=== PATIENT | male | born 1950 | race Caucasian/White ===

== ENCOUNTER 2017-04-23 09:28 | Emergency (ER) | payer MEDICARE ==
--- NOTE | 2017-04-23 10:31 | DIAGNOSTIC IMAGING REPORT ---
PROCEDURE: CT HEAD WITHOUT CONTRAST INDICATION: WEAKNESS TECHNIQUE: Axial CT images were acquired through the head. Coronal and sagittal reformations were created. COMPARISON: None. FINDINGS: No intracranial hemorrhage or extraaxial fluid collections. Ventricles are normal in size, shape and position. There is no mass, mass effect or midline shift. The de jesus-white matter differentiation is normal. There is no edema. The calvarium is intact. The paranasal sinuses and mastoid air cells are normally aerated. The extracranial soft tissues and orbits are normal. IMPRESSION: 1. No CT evidence of acute intracranial process. 2. Findings discussed with Sukumar at 10:[address] scans at this facility use dose modulation, iterative reconstruction, and/or weight-based dosing when appropriate to reduce radiation dose to as low as reasonably achievable.
--- NOTE | 2017-04-23 12:12 | DIAGNOSTIC IMAGING REPORT ---
PROCEDURE: MR LUMBAR SPINE W/O CONTRAST INDICATION: BACK PAIN TECHNIQUE: Noncontrast T1, T2, and STIR sagittal images. T1 and T2 axial images. COMPARISON: Lumbar spine MRI dated 08/17/2006 FINDINGS: Conus normal L1-2: Normal. L2-3: Normal. L3-4: Small broad-based central disc protrusion/herniation superimposed mildly bulging disc and mild narrowing of the central canal lateral recesses. L4-5: Small broad-based right central disc herniation superimposed on mild bulging disc and mild facet disease results in mild to moderate narrowing of the central canal lateral recesses, right greater than left. L5-S1: Mild bulge and facet disease. IMPRESSION: 1. Small broad-based central disc protrusion - herniation at L3-4 with mild central and lateral recess stenosis. 2. Small broad-based right central disc herniation at L4-5 with mild to moderate narrowing of the central canal and lateral recesses, right greater than left.
--- NOTE | 2017-04-23 17:17 | ED CLINICAL REPORT ---
Clinical Report - Physicians/Mid Levels [facility] [address] [place] [address] 04/23/2017 9:36 Patient: BRYSON WORLEY V Time Seen: 09:41. Arrived- By private vehicle. Historian- patient and family, using an seamless hosiery knitter (Tristanian speaking). HISTORY OF PRESENT ILLNESS Chief Complaint: WEAKNESS. This started several months ago, but exacerbated in the past 72 hours and is still present. It was gradual in onset and has been waxing/waning. At its maximum, severity described as moderate. When seen in the E.D., severity described as moderate. Modifying factors- worsened by movement. Relieved by rest. The patient has had weight loss, fatigue, muscle aches, decreased urine output and weakness of the right leg and left leg. No headache. Similar symptoms previously: Recent medical care: The patient was seen recently in a clinic. REVIEW OF SYSTEMS No fever, sore throat, sinus drainage, nasal congestion or cough. No difficulty breathing, chest pain, abdominal pain, nausea or vomiting. No diarrhea, black stools, bloody stools, chills or headache. The patient has had difficulty with urination (states he has not been drinking fluids in the past several days because he cannot walk to the bathroom). He has had moderate back pain (not acutely changed). It has been similar to previous symptoms. He has had difficulty with ambulation (right > left). It has been associated with weakness in both legs. All systems otherwise negative, except as recorded above. PAST HISTORY Chronic Back Pain GERD Hyperlipidemia Chronic Right Elbow and forearm pain Cataracts bilateral SURGERIES: Appendectomy. SOCIAL HISTORY Never smoker. No alcohol use or drug use. ADDITIONAL NOTES The nursing notes have been reviewed. PHYSICAL EXAM Vital Signs: 04/23/2017 09:39 BP: 127/73. HR: 86. RR: 20. O2 saturation: 96%. Temp: 98.8 F. Ashton-Galarza pain scale: 6/10. Appearance: Alert. Patient in mild distress. Eyes: Eyes normal inspection. No scleral icterus or pale conjunctivae. ENT: Nose normal. Dry mucous membranes present. No pharyngeal erythema or tonsillar exudate. Neck: Normal inspection. Neck supple. No JVD. CVS: Normal heart rate and rhythm. Heart sounds normal. Pulses normal. Respiratory: No respiratory distress. Breath sounds normal. Abdomen: No visible injury. Soft and nontender. No mass. Back: Normal inspection. Mild soft-tissue tenderness in the right lower and left lower lumbar area. No vertebral point tenderness. Skin: Skin warm and dry. Normal skin color. No rash. Normal skin turgor. Extremities: Extremities exhibit normal ROM. No lower extremity edema. No calf tenderness. Neuro: Oriented X 3. He has had weakness of the right leg (moderate), right foot (moderate), left leg (moderate) and left foot (moderate). No sensory deficit. Reflex exam: right patellar, left patellar 1+, right Achilles 0 and left Achilles 1+. No Babinski reflex. LABS, X-RAYS, AND EKG EKG: EKG time: (9:58). Normal sinus rhythm. Rate: 80. Normal P waves. Normal MICHELLE. Normal QRS complex. Normal axis. Normal ST and T waves. The study has been interpreted contemporaneously by me. The EKG appears to be a good tracing. Rhythm Strip #1: Normal sinus rhythm. Regular rhythm. Narrow QRS complexes. No ectopy. CT Head: Normal study. No acute changes. No bony abnormalities, no hemorrhage, no intracranial mass, no midline shift and no hydrocephalus. No atrophy. Head CT performed without contrast. The study was independently viewed by me, interpreted by the radiologist and discussed with the radiologist. MRI L-Spine: Note- IMPRESSION: 1. Small broad-based central disc protrusion - herniation at L3-4 with mild central and lateral recess stenosis. 2. Small broad-based right central disc herniation at L4-5 with mild to moderate narrowing of the central canal and lateral recesses, right greater than left. Laboratory Tests: UA-Culture if indicated: (JOHN: 04/23/2017 10:20) ( MsgRcvd 04/23/2017 10:39) Final results Test Result Flag Units (Reference) URINE COLOR YELLOW URINE APPEARANCE TURBID URINE GLUCOSE NEGATIVE (NEGATIVE) URINE BILIRUBIN NEGATIVE (NEGATIVE) URINE KETONE TRACE (NEGATIVE) URINE SPECIFIC GRAVITY 1.015 (1.010-1.030) URINE PH 7.0 (5.0-8.0) URINE PROTEIN NEGATIVE (NEGATIVE) URINE UROBILINOGEN 1.0 EU/dL (0.2-1.0) URINE NITRITE POSITIVE (NEGATIVE) URINE BLOOD TRACE-INTACT (NEGATIVE) URINE LEUK ESTERASE TRACE (NEGATIVE) URINE RBC 0-1 rbc/hpf (0-1) URINE WBC 1-3 wbc/hpf (0-1) URINE EPITHELIAL CELLS NONE SEEN EPI/hpf (0-5) URINE BACTERIA MODERATE (2+ TO 3+) (NONE SEEN) URINE COMMENT CULTURE INDICATED URINE CULTURES ARE SET-UP BASED ON THE FOLLOWING CRITERIA:POSITIVE NITRITEPOSITIVE LEUKOCYTE ESTERASEGREATER THAN 10 WHITE BLOOD CELLSMODERATE (2+) OR GREATER BACTERIA CBC w Diff: (JOHN: 04/23/2017 09:42) ( [facility] 04/23/2017 09:55) Final results Test Result Flag Units (Reference) WHITE BLOOD COUNT 5.5 K/uL (4.5-11.5) RED BLOOD COUNT 4.34 L M/uL (4.50-5.90) HEMOGLOBIN 13.3 L gm/dL (13.5-17.5) HEMATOCRIT 39.3 L % (41.0-53.0) MEAN CELL VOLUME 91 fL (80-100) MEAN CORPUSCULAR HGB 31 pg (26-34) MEAN CORPUSCULAR HGB CONC 34 g/dL (31-37) RED CELL DISTRIBUTION WIDTH 12.9 % (11.6-14.8) PLATELET COUNT 220 K/uL (150-400) NEUTROPHIL % 71.5 % (50-75) LYMPH % 20.5 L % (25-40) MONO % 7.5 % (3-14) EOSINOPHIL % 0.1 % (0-4) BASOPHIL % 0.4 % (0-2) Urine Drug Screen: (JOHN: 04/23/2017 10:20) ( [facility] 04/23/2017 10:47) Final results Test Result Flag Units (Reference) AMPHETAMINE/METHAMPHETAMINE NEGATIVE (NEGATIVE) BARBITURATE NEGATIVE (NEGATIVE) BENZODIAZEPINE NEGATIVE (NEGATIVE) CANNABINOID NEGATIVE (NEGATIVE) COCAINE NEGATIVE (NEGATIVE) ECSTASY NEGATIVE (NEGATIVE) METHADONE NEGATIVE (NEGATIVE) OPIATE NEGATIVE (NEGATIVE) The urine drug screen is a qualitative screening test fordrug overdose and abuse. All screen results should beconsidered as presumptive.Drugs screened for are as follows:BenzodiazepinesCocaineAmphetamines/MetamphetaminesTHC (Tetrahydrocannabinol)OpiatesBarbituratesEcstasyMethadonePositive results are unconfirmed. For confirmation, notifythe lab for the specimen to be sent to the reference lab.All confirmations must be performed by a differentmethodology.The ingestion of natural herbal and plant productscontaining Ephedra/Ephedra metabolites can produce in urineone or more substances capable of cross reacting withamphetamine/methamphetamine immunoassays. These testsprovide a preliminary result only. A more specificalternative chemical method must be used to obtain aconfirmed analytical result. BNP: (JOHN: 04/23/2017 09:42) ( [facility] 04/23/2017 10:11) Final results Test Result Flag Units (Reference) B-TYPE NATRIURETIC PEPTIDE 14.6 pg/ml (5-100) CHEM 13 PANEL: (JOHN: 04/23/2017 09:42) ( [facility] 04/23/2017 10:15) Final results Test Result Flag Units (Reference) GLUCOSE 125 H mg/dL (70-110) BUN 21 H mg/dL (7-18) CREATININE 0.9 mg/dL (0.6-1.3) Estimated GFR >60 mL/min Estimated GFR- >60 mL/min Note: Persistent reduction over 3 months in eGFR<60 mL/min/1.73 m2 defines CKD. Patients with eGFR values>=60 mL/min/1.73 m2 may also have CKD if evidence ofpersistent proteinuria. Additional information may be foundat www.kidney.org. SODIUM 145 mmol/L (136-145) POTASSIUM 3.6 mmol/L (3.5-5.1) CHLORIDE 108 H mmol/L (98-107) CARBON DIOXIDE 29 mmol/L (21-32) CALCIUM 9.4 mg/dL (8.5-10.1) TOTAL PROTEIN 7.3 g/dL (6.4-8.2) ALBUMIN 4.1 g/dL (3.3-5.0) BILIRUBIN, TOTAL 0.7 mg/dL (0.0-1.0) ALKALINE PHOSPHATASE 38 L U/L (46-116) AST (SGOT) 9 L U/L (15-37) ALT (SGPT) 13 U/L (12-78) CPK 57 U/L (24-260) MAGNESIUM 2.1 mg/dL (1.8-2.4) LIPASE 183 U/L (73-393) AMYLASE 52 U/L (25-115) TROPONIN I <0.05 ng/mL (0.00-1.5) TROPONIN REFERENCE RANGE:<0.1 NEGATIVE0.1-1.5 INDETERMINANT>1.5 POSITIVE THYROID STIMULATING HORMONE 0.928 uIU/mL (0.30-3.74) . Microbiology: Urine culture ordered. Pulse Oximetry: 04/23/2017 09:39 O2 saturation: 96%. (FIO2 - room air). Interpretation: normal. Note - Tests: (DATE OF EXAM(S): 03/01/2015 PROCEDURE: MR BRAIN W OR WO IACS WO CONTRAST INDICATIONS: Chronic headache. TECHNIQUE: T1 sagittal and T2 coronal images. T1, T2, FLAIR, gradient echo and diffusion axial images with ADC map. COMPARISON: None FINDINGS: Mild cortical atrophy. Ventricular system and brain parenchyma have a normal appearance. No evidence of an acute CVA, chronic ischemic changes, mass or midline shift. Normal vascular flow voids. Orbits are unremarkable. Mastoids and sinuses are clear. IMPRESSION: 1. No acute changes 2. Mild age appropriate atrophy). PROGRESS AND PROCEDURES Course of Care: Normal Saline 1 liter IVPB given. Levofloxacin 500 mg PO given. Protonix 40 mg IVP given. Solu-Medrol [address] head unremarkable. Lumbar MRI with central cord herniation L4/5 greater than L3/4 and also hypertrophic facets. This may be causing a subacute cauda equina syndrome and pt is too weak to ambulate. He is dehydrated clinically likely because he is not taking po's because he cannot ambulate to the bathroom - bladder empty. May have a subtle UTI - 3+ bacteria (vs contamination) and +nitrite, however not incontinence or urine or stool and no saddle area anesthesia. Discussed case with health care provider ( transfer center paged at 13:50 call returned 14:17 (spoke with transfer RN); call returned 15:02 - Dr Eckert (spine [place] at [facility] [place] - he declines to accept pt in transfer). Reviewed test results. Agreed upon treatment plan. Discussed case with on-call health care provider, ([facility] neurosurg call placed 15:09; Dr Mo Burns call returned 17:15). Reviewed test results. Agreed upon treatment plan and decision to admit. Health care provider will see patient in hospital. Patient/family counseled. Old clinic records reviewed. (from [facility]). Transfer orders written. Disposition: Transferred to [facility]. Condition: stable and improved. CLINICAL IMPRESSION Mild dehydration Mild chronic anemia. Acute urinary tract infection with cystitis. Acute bilateral lower extremity weakness - rule out cauda equina syndrome. INSTRUCTIONS Drink plenty of fluids. (Electronically signed by Cole Patino DO 04/23/2017 21:25)
--- NOTE | 2017-04-23 17:17 | ED CLINICAL REPORT ---
Clinical Report - Physicians/Mid Levels [facility] [address] [place] [address] 04/23/2017 9:36 Patient: BRYSON WORLEY V Time Seen: 09:41. Arrived- By private vehicle. Historian- patient and family, using an senior oracle developer (Hong Konger speaking). HISTORY OF PRESENT ILLNESS Chief Complaint: WEAKNESS. This started several months ago, but exacerbated in the past 72 hours and is still present. It was gradual in onset and has been waxing/waning. At its maximum, severity described as moderate. When seen in the E.D., severity described as moderate. Modifying factors- worsened by movement. Relieved by rest. The patient has had weight loss, fatigue, muscle aches, decreased urine output and weakness of the right leg and left leg. No headache. Similar symptoms previously: Recent medical care: The patient was seen recently in a clinic. REVIEW OF SYSTEMS No fever, sore throat, sinus drainage, nasal congestion or cough. No difficulty breathing, chest pain, abdominal pain, nausea or vomiting. No diarrhea, black stools, bloody stools, chills or headache. The patient has had difficulty with urination (states he has not been drinking fluids in the past several days because he cannot walk to the bathroom). He has had moderate back pain (not acutely changed). It has been similar to previous symptoms. He has had difficulty with ambulation (right > left). It has been associated with weakness in both legs. All systems otherwise negative, except as recorded above. PAST HISTORY Chronic Back Pain GERD Hyperlipidemia Chronic Right Elbow and forearm pain Cataracts bilateral SURGERIES: Appendectomy. SOCIAL HISTORY Never smoker. No alcohol use or drug use. ADDITIONAL NOTES The nursing notes have been reviewed. PHYSICAL EXAM Vital Signs: 04/23/2017 09:39 BP: 127/73. HR: 86. RR: 20. O2 saturation: 96%. Temp: 98.8 F. Ashton-Galarza pain scale: 6/10. Appearance: Alert. Patient in mild distress. Eyes: Eyes normal inspection. No scleral icterus or pale conjunctivae. ENT: Nose normal. Dry mucous membranes present. No pharyngeal erythema or tonsillar exudate. Neck: Normal inspection. Neck supple. No JVD. CVS: Normal heart rate and rhythm. Heart sounds normal. Pulses normal. Respiratory: No respiratory distress. Breath sounds normal. Abdomen: No visible injury. Soft and nontender. No mass. Back: Normal inspection. Mild soft-tissue tenderness in the right lower and left lower lumbar area. No vertebral point tenderness. Skin: Skin warm and dry. Normal skin color. No rash. Normal skin turgor. Extremities: Extremities exhibit normal ROM. No lower extremity edema. No calf tenderness. Neuro: Oriented X 3. He has had weakness of the right leg (moderate), right foot (moderate), left leg (moderate) and left foot (moderate). No sensory deficit. Reflex exam: right patellar, left patellar 1+, right Achilles 0 and left Achilles 1+. No Babinski reflex. LABS, X-RAYS, AND EKG EKG: EKG time: (9:58). Normal sinus rhythm. Rate: 80. Normal P waves. Normal MICHELLE. Normal QRS complex. Normal axis. Normal ST and T waves. The study has been interpreted contemporaneously by me. The EKG appears to be a good tracing. Rhythm Strip #1: Normal sinus rhythm. Regular rhythm. Narrow QRS complexes. No ectopy. CT Head: Normal study. No acute changes. No bony abnormalities, no hemorrhage, no intracranial mass, no midline shift and no hydrocephalus. No atrophy. Head CT performed without contrast. The study was independently viewed by me, interpreted by the radiologist and discussed with the radiologist. MRI L-Spine: Note- IMPRESSION: 1. Small broad-based central disc protrusion - herniation at L3-4 with mild central and lateral recess stenosis. 2. Small broad-based right central disc herniation at L4-5 with mild to moderate narrowing of the central canal and lateral recesses, right greater than left. Laboratory Tests: UA-Culture if indicated: (JOHN: 04/23/2017 10:20) ( MsgRcvd 04/23/2017 10:39) Final results Test Result Flag Units (Reference) URINE COLOR YELLOW URINE APPEARANCE TURBID URINE GLUCOSE NEGATIVE (NEGATIVE) URINE BILIRUBIN NEGATIVE (NEGATIVE) URINE KETONE TRACE (NEGATIVE) URINE SPECIFIC GRAVITY 1.015 (1.010-1.030) URINE PH 7.0 (5.0-8.0) URINE PROTEIN NEGATIVE (NEGATIVE) URINE UROBILINOGEN 1.0 EU/dL (0.2-1.0) URINE NITRITE POSITIVE (NEGATIVE) URINE BLOOD TRACE-INTACT (NEGATIVE) URINE LEUK ESTERASE TRACE (NEGATIVE) URINE RBC 0-1 rbc/hpf (0-1) URINE WBC 1-3 wbc/hpf (0-1) URINE EPITHELIAL CELLS NONE SEEN EPI/hpf (0-5) URINE BACTERIA MODERATE (2+ TO 3+) (NONE SEEN) URINE COMMENT CULTURE INDICATED URINE CULTURES ARE SET-UP BASED ON THE FOLLOWING CRITERIA:POSITIVE NITRITEPOSITIVE LEUKOCYTE ESTERASEGREATER THAN 10 WHITE BLOOD CELLSMODERATE (2+) OR GREATER BACTERIA CBC w Diff: (JOHN: 04/23/2017 09:42) ( [facility] 04/23/2017 09:55) Final results Test Result Flag Units (Reference) WHITE BLOOD COUNT 5.5 K/uL (4.5-11.5) RED BLOOD COUNT 4.34 L M/uL (4.50-5.90) HEMOGLOBIN 13.3 L gm/dL (13.5-17.5) HEMATOCRIT 39.3 L % (41.0-53.0) MEAN CELL VOLUME 91 fL (80-100) MEAN CORPUSCULAR HGB 31 pg (26-34) MEAN CORPUSCULAR HGB CONC 34 g/dL (31-37) RED CELL DISTRIBUTION WIDTH 12.9 % (11.6-14.8) PLATELET COUNT 220 K/uL (150-400) NEUTROPHIL % 71.5 % (50-75) LYMPH % 20.5 L % (25-40) MONO % 7.5 % (3-14) EOSINOPHIL % 0.1 % (0-4) BASOPHIL % 0.4 % (0-2) Urine Drug Screen: (JONH: 04/23/2017 10:20) ( [facility] 04/23/2017 10:47) Final results Test Result Flag Units (Reference) AMPHETAMINE/METHAMPHETAMINE NEGATIVE (NEGATIVE) BARBITURATE NEGATIVE (NEGATIVE) BENZODIAZEPINE NEGATIVE (NEGATIVE) CANNABINOID NEGATIVE (NEGATIVE) COCAINE NEGATIVE (NEGATIVE) ECSTASY NEGATIVE (NEGATIVE) METHADONE NEGATIVE (NEGATIVE) OPIATE NEGATIVE (NEGATIVE) The urine drug screen is a qualitative screening test fordrug overdose and abuse. All screen results should beconsidered as presumptive.Drugs screened for are as follows:BenzodiazepinesCocaineAmphetamines/MetamphetaminesTHC (Tetrahydrocannabinol)OpiatesBarbituratesEcstasyMethadonePositive results are unconfirmed. For confirmation, notifythe lab for the specimen to be sent to the reference lab.All confirmations must be performed by a differentmethodology.The ingestion of natural herbal and plant productscontaining Ephedra/Ephedra metabolites can produce in urineone or more substances capable of cross reacting withamphetamine/methamphetamine immunoassays. These testsprovide a preliminary result only. A more specificalternative chemical method must be used to obtain aconfirmed analytical result. BNP: (JOHN: 04/23/2017 09:42) ( [facility] 04/23/2017 10:11) Final results Test Result Flag Units (Reference) B-TYPE NATRIURETIC PEPTIDE 14.6 pg/ml (5-100) CHEM 13 PANEL: (JOHN: 04/23/2017 09:42) ( [facility] 04/23/2017 10:15) Final results Test Result Flag Units (Reference) GLUCOSE 125 H mg/dL (70-110) BUN 21 H mg/dL (7-18) CREATININE 0.9 mg/dL (0.6-1.3) Estimated GFR >60 mL/min Estimated GFR- >60 mL/min Note: Persistent reduction over 3 months in eGFR<60 mL/min/1.73 m2 defines CKD. Patients with eGFR values>=60 mL/min/1.73 m2 may also have CKD if evidence ofpersistent proteinuria. Additional information may be foundat www.kidney.org. SODIUM 145 mmol/L (136-145) POTASSIUM 3.6 mmol/L (3.5-5.1) CHLORIDE 108 H mmol/L (98-107) CARBON DIOXIDE 29 mmol/L (21-32) CALCIUM 9.4 mg/dL (8.5-10.1) TOTAL PROTEIN 7.3 g/dL (6.4-8.2) ALBUMIN 4.1 g/dL (3.3-5.0) BILIRUBIN, TOTAL 0.7 mg/dL (0.0-1.0) ALKALINE PHOSPHATASE 38 L U/L (46-116) AST (SGOT) 9 L U/L (15-37) ALT (SGPT) 13 U/L (12-78) CPK 57 U/L (24-260) MAGNESIUM 2.1 mg/dL (1.8-2.4) LIPASE 183 U/L (73-393) AMYLASE 52 U/L (25-115) TROPONIN I <0.05 ng/mL (0.00-1.5) TROPONIN REFERENCE RANGE:<0.1 NEGATIVE0.1-1.5 INDETERMINANT>1.5 POSITIVE THYROID STIMULATING HORMONE 0.928 uIU/mL (0.30-3.74) . Microbiology: Urine culture ordered. Pulse Oximetry: 04/23/2017 09:39 O2 saturation: 96%. (FIO2 - room air). Interpretation: normal. Note - Tests: (DATE OF EXAM(S): 03/01/2015 PROCEDURE: MR BRAIN W OR WO IACS WO CONTRAST INDICATIONS: Chronic headache. TECHNIQUE: T1 sagittal and T2 coronal images. T1, T2, FLAIR, gradient echo and diffusion axial images with ADC map. COMPARISON: None FINDINGS: Mild cortical atrophy. Ventricular system and brain parenchyma have a normal appearance. No evidence of an acute CVA, chronic ischemic changes, mass or midline shift. Normal vascular flow voids. Orbits are unremarkable. Mastoids and sinuses are clear. IMPRESSION: 1. No acute changes 2. Mild age appropriate atrophy). PROGRESS AND PROCEDURES Course of Care: Normal Saline 1 liter IVPB given. Levofloxacin 500 mg PO given. Protonix 40 mg IVP given. Solu-Medrol [address] head unremarkable. Lumbar MRI with central cord herniation L4/5 greater than L3/4 and also hypertrophic facets. This may be causing a subacute cauda equina syndrome and pt is too weak to ambulate. He is dehydrated clinically likely because he is not taking po's because he cannot ambulate to the bathroom - bladder empty. May have a subtle UTI - 3+ bacteria (vs contamination) and +nitrite, however not incontinence or urine or stool and no saddle area anesthesia. Discussed case with health care provider ( transfer center paged at 13:50 call returned 14:17 (spoke with transfer RN); call returned 15:02 - Dr Eckert ([place] [facility] [place] - he declines to accept pt in transfer). Reviewed test results. Agreed upon treatment plan. Discussed case with on-call health care provider, ([facility] neurosurg call placed 15:09; Dr Mo Burns call returned 17:15). Reviewed test results. Agreed upon treatment plan and decision to admit. Health care provider will see patient in hospital. Patient/family counseled. Old clinic records reviewed. (from [facility]). Transfer orders written. Disposition: Transferred to [facility]. Condition: stable and improved. CLINICAL IMPRESSION Mild dehydration Mild chronic anemia. Acute urinary tract infection with cystitis. Acute bilateral lower extremity weakness - rule out cauda equina syndrome. INSTRUCTIONS Drink plenty of fluids. (Electronically signed by Cole Patino DO 04/23/2017 21:25)
--- NOTE | 2017-04-23 17:17 | ED ORDER SUMMARY ---
..... 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) (09:04/23/2017 PHutchinson DO) (10:15 JSimbeck R.N.) BNP Urgent (04/23/2017 PHutchinson DO) (Ack 9:51 KHoerner) (9:55 KHoerner) Cardiac Panel Stat (04/23/2017 PHutchinson DO) (Ack 9:51 KHoerner) (9:55 KHoerner) UA-Culture if indicated Urgent (:04/23/2017 PHutchinson DO) (Ack 9:51 KHoerner) (10:40 JSimbeck R.N.) TSH Urgent (:04/23/2017 PHutchinson DO) (Ack 9:51 KHoerner) (9:55 KHoerner) Urine Drug Screen Urgent (:04/23/2017 PHutchinson DO) (Ack 9:51 KHoerner) (10:40 JSimbeck R.N.) Pulse oximeter (:04/23/2017 PHutchinson DO) (9:53 JSimbeck R.N.) EKG - ER Stat (:04/23/2017 PHutchinson DO) (9:53 JSimbeck R.N.) POC Glucose (:04/23/2017 PHutchinson DO) (10:31 JSimbeck R.N.) Amylase Urgent (:04/23/2017 PHutchinson DO) (Ack 9:55 KHoerner) (9:55 KHoerner) Lipase Urgent (:04/23/2017 PHutchinson DO) (Ack 9:55 KHoerner) (9:55 KHoerner) CT Head wo Cont (Right > left) Urgent (09:04/23/2017 PHutchinson DO) (Ack 9:56 KHoerner) (10:23 KHoerner) Old Records (from [facility]) (10:13 04/23/2017 PHutchinson DO) (Ack 10:19 KHoerner) (10:36 KHoerner) MRI Lumbar Spine wo Cont (Not Applicable) (right > left lower ext weakness) Urgent (10:42 04/23/2017 PHutchinson DO) (Ack 10:47 KHoerner) (12:19 KHoerner) Call (Place call to): ( transfer center) (13:46 04/23/2017 PHutchinson DO) (Ack 13:49 KHoerner) (14:22 KHoerner) MEDICATION ORDERS: Levofloxacin PO 500 mg (NOW) (11:39 04/23/2017 [facility] (12:19 Levareck R.N.) IV FLUIDS: IV NS : initial bolus 1000 mL (1000 mL/hr), then 250 mL/hr for X4 (NOW) (09:44 04/23/2017 [facility]) (10:15 RAMÓNimbeck R.N.) Solu-MEDROL IV 125 mg (NOW) (15:07 04/23/2017 [facility]) (15:21 JSimbeck R.N.) Protonix IVP 40mg 40 mg (Mix in NS 10ml over 2min) (17:17 04/23/2017 [facility] [employer]) (17:33 JSimbeck R.N.) ORDER SHEET NOTES: [Electronically signed by Cole Patino DO (21:25 04/23/2017)] [Electronically signed by Suraj Flores R.N. (15:05 04/24/2017)] [Electronically locked/signed by Suraj Flores R.N. (15:04/24/2017)]
--- NOTE | 2017-04-23 17:17 | ED ORDER SUMMARY ---
..... 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) (09:04/23/2017 PHutchinson DO) (10:15 JSimbeck R.N.) BNP Urgent (04/23/2017 PHutchinson DO) (Ack 9:51 KHoerner) (9:55 KHoerner) Cardiac Panel Stat (04/23/2017 PHutchinson DO) (Ack 9:51 KHoerner) (9:55 KHoerner) UA-Culture if indicated Urgent (:04/23/2017 PHutchinson DO) (Ack 9:51 KHoerner) (10:40 JSimbeck R.N.) TSH Urgent (:04/23/2017 PHutchinson DO) (Ack 9:51 KHoerner) (9:55 KHoerner) Urine Drug Screen Urgent (:04/23/2017 PHutchinson DO) (Ack 9:51 KHoerner) (10:40 JSimbeck R.N.) Pulse oximeter (:04/23/2017 PHutchinson DO) (9:53 JSimbeck R.N.) EKG - ER Stat (:04/23/2017 PHutchinson DO) (9:53 JSimbeck R.N.) POC Glucose (:04/23/2017 PHutchinson DO) (10:31 JSimbeck R.N.) Amylase Urgent (:04/23/2017 PHutchinson DO) (Ack 9:55 KHoerner) (9:55 KHoerner) Lipase Urgent (:04/23/2017 PHutchinson DO) (Ack 9:55 KHoerner) (9:55 KHoerner) CT Head wo Cont (Right > left) Urgent (09:04/23/2017 PHutchinson DO) (Ack 9:56 KHoerner) (10:23 KHoerner) Old Records (from [facility]) (10:13 04/23/2017 PHutchinson DO) (Ack 10:19 KHoerner) (10:36 KHoerner) MRI Lumbar Spine wo Cont (Not Applicable) (right > left lower ext weakness) Urgent (10:42 04/23/2017 PHutchinson DO) (Ack 10:47 KHoerner) (12:19 KHoerner) Call (Place call to): ( transfer center) (13:46 04/23/2017 PHutchinson DO) (Ack 13:49 KHoerner) (14:22 KHoerner) MEDICATION ORDERS: Levofloxacin PO 500 mg (NOW) (11:39 04/23/2017 [facility]) (12:19 Levareck R.N.) IV FLUIDS: IV NS : initial bolus 1000 mL (1000 mL/hr), then 250 mL/hr for X4 (NOW) (09:44 04/23/2017 [facility] DO) (10:15 RAMÓNimbeck R.N.) Solu-MEDROL IV 125 mg (NOW) (15:07 04/23/2017 [facility]) (15:21 JSimbeck R.N.) Protonix IVP 40mg 40 mg (Mix in NS 10ml over 2min) (17:17 04/23/2017 [facility]) (17:33 JSimbeck R.N.) ORDER SHEET NOTES: [Electronically signed by Cole Patino DO (21:25 04/23/2017)] [Electronically signed by Suraj Flores R.N. (15:05 04/24/2017)] [Electronically locked/signed by Suraj Flores R.N. (15:04/24/2017)]
--- NOTE | 2017-04-23 17:17 | ED NURSING NOTES ---
Clinical Report - Nurses [facility] [address] [place] [address] 04/23/2017 9:36 Patient: BRYSON WORLEY V TRIAGE Triage time 0930. Acuity: LEVEL 3. Chief Complaint: Location of symptoms- (Bilat LE weakness, unable to ambulate today, increasing generalized weakness.). SEPSIS SCREEN: Sepsis Screen. Negative (no infection suspected/documented). HILARY COMA SCORE: [place] Coma Scale: 15- eyes open spontaneously (4); best verbal response- oriented x 4 (5); best motor response- obeys commands (6). --09:50 Suraj Flores R.N. 09:38 04/23/17. BP: 127/73. HR: 86. RR: 20. O2 saturation: 96% on room air. Temp: 98.8 F. Ashton-Galarza pain scale: 6/10. --09:50 Suraj Flores R.N. Weight: 58.9 kg stated. Height/Length: 69 inches Per Patient. BMI: 19.2. --09:45 Suraj Flores R.N. Medications Lovastatin Oral (Tablet 10 mg), daily. --09:42 Suraj Flroes R.N. Zantac Oral. --09:43 Suraj Flores R.N. Allergies No Known Drug Allergy. --13:18 Suraj Flores R.N. History Arrived by EMS, and (A-47). Historian: patient and family (son is interpreting). ( Pt reports decreased po fluid intake to avoid going to the [place] so often.). SOCIAL HX: Never smoker. No alcohol use or drug use. ABUSE ASSESSMENT: No report of abuse. --09:50 Suraj Flores R.N. PROBLEMS: Elevated Cholesterol. GERD. Back Injury. Right sided weakness. --09:46 Suraj Flores R.N. ADDITIONAL SURGERIES: Appendectomy. --09:46 Suraj Flores R.N. Interventions ID band on patient. To treatment room. --09:50 Suraj Flores R.N. PHYSICAL ASSESSMENT late entry -09:45. To room via stretcher. GENERAL / NEURO / PSYCH: Oriented X 4. Alert. Appears in no acute distress. Appears in pain. ( Generalized weakness, pt is unable to move in bed, rise to stand, or walk without max assist. He is only able to shuffle a few steps and pivot with max assist. Pt is unsteady on his feet and requires SBA to CGA while standing.). He has had weakness (new LLE weakness in addition to chronic RLE weakness, bilat LE tremors (right leg tremor at rest, left leg tremor with activity).). EXTREMITIES: Extremities do not exhibit normal ROM. Limited ROM present (all extremities). Extremity pulses are within normal limits. Abnormal gait. No lower extremity edema. SKIN: Skin is pale. Skin is warm and dry. --12:06 Suraj Flores R.N. NURSING PROGRESS NOTES EKG time: (958). EKG was ordered, performed by a tech and shown to the ED physician. --09:57 Maris Duong 09:42 04/23/2017 Site #1 started via IV in the left antecubital space with an 20g angiocath, with aseptic technique and good blood return; one attempt. Blood drawn: rainbow set. Labeled in the presence of the patient and sent to the lab. Saline lock flushed with 10 mL saline. --10:15 Suraj Flores R.N. 09:55 04/23/2017 Started bag #1 1000 mL IV Fluids IV NS (Saline); bolus of 1000 mL over 1 hour(s) via site #1. Allergies verified and confirmed 5 rights. IV patency established. IV site checked: no pain, redness, or swelling. IV flushed thoroughly pre- and post-medication administration. --10:15 Suraj Flores R.N. <<STRICKEN ENTRY-- Patient transported to radiology by stretcher. (0910). --10:20 Suraj Flores R.N. --END STRIKE>> Correction --10:29 Suraj Flores R.N. Patient returned. (1025). --10:29 Suraj Flores R.N. Patient transported to radiology by stretcher. (1010). --10:29 Suraj Flores R.N. ( POC glucose: 123 mg/dl). --10:33 Maris Duong Patient transported to [facility] by wheelchair with nurse and tech. (1020). --11:24 Suraj Flores R.N. 11:00 04/23/2017 IV Fluids IV NS Bag Change: bag #1 completed. Total amount infused: 1000. STARTED bag #2 (1000 mL) at 250 mL/hr via IV pump. IV patency established. IV site checked: no pain, redness, or swelling. IV flushed thoroughly. --11:25 Suraj Flores R.N. Patient returned from [facility] by wheelchair with nurse and tech. (1200). --12:00 Suraj Flores R.N. 10:30 04/23/17. BP: 108/59. HR: 72. RR: 20. O2 saturation: 96% on room air. --12:17 Suraj Flores R.N. 12:00 04/23/17. BP: 116/64. HR: 73. RR: 20. O2 saturation: 96% on room air. Ashton-Galarza pain scale: 4/10. --12:18 Suraj Flores R.N. late entry -12:10. playground monitor, pulse oximeter and NIBP monitor placed on patient; laboratory monitor- Lead II and V1; monitor alarms on. Reassurance given. Call light placed in reach. Side rails up x 2. Bed placed in lowest position. Brakes of bed on. ( Son & at the bedside. Pt voided prior to MRI and again upon returning from [facility].). --12:19 Suraj Flores R.N. 12:10 04/23/2017 Levofloxacin PO Tablets 500 mg given. Allergies verified and confirmed 5 rights. --12:19 Suraj Flores R.N. 12:30 04/23/17. BP: 109/65. HR: 73. RR: 20. O2 saturation: 97% on room air. --12:53 Suraj Flores R.N. Cardiac rhythm: normal sinus rhythm. Monitoring of patient in place. --13:43 Suraj Flores R.N. 13:35 04/23/17. BP: 118/72. HR: 80. RR: 20. O2 saturation: 97% on room air. --13:43 Suraj Flores R.N. 13:00 04/23/17. BP: 122/79. HR: 84. RR: 20. O2 saturation: 97% on room air. --13:44 Suraj Flores R.N. 15:20 04/23/2017 SOLU-MEDROL (MethylPREDNISolone Sodium Succ) IVP 125 mg given over 1 minute(s) via site #1. Allergies verified and confirmed 5 rights. IV patency established. IV site checked: no pain, redness, or swelling. IV flushed thoroughly pre- and post-medication administration. IVP given by RN. --15:21 Suraj Flores R.N. 16:19 04/23/2017 IV Fluids IV NS Discontinued: bag #2 completed. Total amount infused: 1000 mL. IV patency established. IV site checked: no pain, redness, or swelling. IV flushed thoroughly. --16:19 Suraj Flores R.N. 17:30 04/23/2017 PROTONIX (Pantoprazole Sodium) IVP 40 mg given over 2 minute(s) via site #1. Allergies verified and confirmed 5 rights. IV patency established. IV site checked: no pain, redness, or swelling. IV flushed thoroughly pre- and post-medication administration. IVP given by RN. --17:33 Suraj Flores R.N. 14:00 04/23/17. BP: 123/80. HR: 78. RR: 19. O2 saturation: 97% on room air. --17:34 Suraj Flores R.N. 14:30 04/23/17. BP: 115/78. HR: 78. RR: 18. O2 saturation: 97% on room air. --17:35 Suraj Flores R.N. 15:00 04/23/17. BP: 116/76. HR: 82. RR: 18. O2 saturation: 98% on room air. --17:36 Suraj Flores R.N. 15:30 04/23/17. BP: 130/106. HR: 81. RR: 19. O2 saturation: 94% on room air. --17:37 Suraj Flores R.N. 16:00 04/23/17. BP: 105/61. HR: 76. RR: 19. O2 saturation: 96% on room air. Ashton-Galarza pain scale: 02/22. --17:37 Suraj Flores R.N. 16:30 04/23/17. BP: 127/68. HR: 82. RR: 20. O2 saturation: 98% on room air. --17:38 Suraj Flores R.N. 17:00 04/23/17. BP: 115/71. HR: 79. RR: 20. O2 saturation: 97% on room air. --17:38 Suraj Flores R.N. DISPOSITION / DISCHARGE Report was given to a nurse via a phone call. Report included patient's care, treatment, medications, reviewed medication reconcilliation, and condition (including any recent changes or anticipated changes). All questions were answered. Report was acknowledged. (AUNDREA Hurtado). --18:07 Suraj Flores R.N. ( NWA here for transport, report given to the crew.). --18:36 Suraj Flores R.N. Departure time: 1845. Condition at departure: unchanged and stable. Transferred to [facility] (Room 1002). Transported via stretcher by EMS with IV. --19:14 Suraj Flores R.N. Locked/Released at 04/24/2017 15:05 by Suraj Flores R.N.
--- NOTE | 2017-04-23 17:17 | ED NURSING NOTES ---
Clinical Report - Nurses [facility] [address] [place] [address] 04/23/2017 9:36 Patient: BRYSON WORLEY V TRIAGE Triage time 0930. Acuity: LEVEL 3. Chief Complaint: Location of symptoms- (Bilat LE weakness, unable to ambulate today, increasing generalized weakness.). SEPSIS SCREEN: Sepsis Screen. Negative (no infection suspected/documented). HILARY COMA SCORE: [place] Coma Scale: 15- eyes open spontaneously (4); best verbal response- oriented x 4 (5); best motor response- obeys commands (6). --09:50 Suraj Flores R.N. 09:38 04/23/17. BP: 127/73. HR: 86. RR: 20. O2 saturation: 96% on room air. Temp: 98.8 F. Ashton-Galarza pain scale: 6/10. --09:50 Suraj Flores R.N. Weight: 58.9 kg stated. Height/Length: 69 inches Per Patient. BMI: 19.2. --09:45 Suraj Flores R.N. Medications Lovastatin Oral (Tablet 10 mg), daily. --09:42 Suraj Flores R.N. Zantac Oral. --09:43 Suraj Flores R.N. Allergies No Known Drug Allergy. --13:18 Suraj Flores R.N. History Arrived by EMS, and (A-47). Historian: patient and family (son is interpreting). ( Pt reports decreased po fluid intake to avoid going to the [place] so often.). SOCIAL HX: Never smoker. No alcohol use or drug use. ABUSE ASSESSMENT: No report of abuse. --09:50 Suraj Flores R.N. PROBLEMS: Elevated Cholesterol. GERD. Back Injury. Right sided weakness. --09:46 Suraj Flores R.N. ADDITIONAL SURGERIES: Appendectomy. --09:46 Suraj Flores R.N. Interventions ID band on patient. To treatment room. --09:50 Suraj Flores R.N. PHYSICAL ASSESSMENT late entry -09:45. To room via stretcher. GENERAL / NEURO / PSYCH: Oriented X 4. Alert. Appears in no acute distress. Appears in pain. ( Generalized weakness, pt is unable to move in bed, rise to stand, or walk without max assist. He is only able to shuffle a few steps and pivot with max assist. Pt is unsteady on his feet and requires SBA to CGA while standing.). He has had weakness (new LLE weakness in addition to chronic RLE weakness, bilat LE tremors (right leg tremor at rest, left leg tremor with activity).). EXTREMITIES: Extremities do not exhibit normal ROM. Limited ROM present (all extremities). Extremity pulses are within normal limits. Abnormal gait. No lower extremity edema. SKIN: Skin is pale. Skin is warm and dry. --12:06 Suraj Flores R.N. NURSING PROGRESS NOTES EKG time: (958). EKG was ordered, performed by a tech and shown to the ED physician. --09:57 Maris Duong 09:42 04/23/2017 Site #1 started via IV in the left antecubital space with an 20g angiocath, with aseptic technique and good blood return; one attempt. Blood drawn: rainbow set. Labeled in the presence of the patient and sent to the lab. Saline lock flushed with 10 mL saline. --10:15 Suraj Flores R.N. 09:55 04/23/2017 Started bag #1 1000 mL IV Fluids IV NS (Saline); bolus of 1000 mL over 1 hour(s) via site #1. Allergies verified and confirmed 5 rights. IV patency established. IV site checked: no pain, redness, or swelling. IV flushed thoroughly pre- and post-medication administration. --10:15 Suraj Flores R.N. <<STRICKEN ENTRY-- Patient transported to radiology by stretcher. (0910). --10:20 Suraj Flores R.N. --END STRIKE>> Correction --10:29 Suraj Flores R.N. Patient returned. (1025). --10:29 Suraj Flores R.N. Patient transported to radiology by stretcher. (1010). --10:29 Suraj Flores R.N. ( POC glucose: 123 mg/dl). --10:33 Maris Duong Patient transported to [facility] by wheelchair with nurse and tech. (1020). --11:24 Suraj Flores R.N. 11:00 04/23/2017 IV Fluids IV NS Bag Change: bag #1 completed. Total amount infused: 1000. STARTED bag #2 (1000 mL) at 250 mL/hr via IV pump. IV patency established. IV site checked: no pain, redness, or swelling. IV flushed thoroughly. --11:25 Suraj Flores R.N. Patient returned from [facility] by wheelchair with nurse and tech. (1200). --12:00 Suraj Flores R.N. 10:30 04/23/17. BP: 108/59. HR: 72. RR: 20. O2 saturation: 96% on room air. --12:17 Suraj Flores R.N. 12:00 04/23/17. BP: 116/64. HR: 73. RR: 20. O2 saturation: 96% on room air. Ashton-Galarza pain scale: 4/10. --12:18 Suraj Flores R.N. late entry -12:10. teletypesetter monitor, pulse oximeter and NIBP monitor placed on patient; teletypesetter monitor- Lead II and V1; monitor alarms on. Reassurance given. Call light placed in reach. Side rails up x 2. Bed placed in lowest position. Brakes of bed on. ( Son & at the bedside. Pt voided prior to MRI and again upon returning from [facility].). --12:19 Suraj Flores R.N. 12:10 04/23/2017 Levofloxacin PO Tablets 500 mg given. Allergies verified and confirmed 5 rights. --12:19 Suraj Flores R.N. 12:30 04/23/17. BP: 109/65. HR: 73. RR: 20. O2 saturation: 97% on room air. --12:53 Suraj Flores R.N. Cardiac rhythm: normal sinus rhythm. Monitoring of patient in place. --13:43 Suraj Flores R.N. 13:35 04/23/17. BP: 118/72. HR: 80. RR: 20. O2 saturation: 97% on room air. --13:43 Suraj Flores R.N. 13:00 04/23/17. BP: 122/79. HR: 84. RR: 20. O2 saturation: 97% on room air. --13:44 Suraj Flores R.N. 15:20 04/23/2017 SOLU-MEDROL (MethylPREDNISolone Sodium Succ) IVP 125 mg given over 1 minute(s) via site #1. Allergies verified and confirmed 5 rights. IV patency established. IV site checked: no pain, redness, or swelling. IV flushed thoroughly pre- and post-medication administration. IVP given by RN. --15:21 Suraj Flores R.N. 16:19 04/23/2017 IV Fluids IV NS Discontinued: bag #2 completed. Total amount infused: 1000 mL. IV patency established. IV site checked: no pain, redness, or swelling. IV flushed thoroughly. --16:19 Suraj Flores R.N. 17:30 04/23/2017 PROTONIX (Pantoprazole Sodium) IVP 40 mg given over 2 minute(s) via site #1. Allergies verified and confirmed 5 rights. IV patency established. IV site checked: no pain, redness, or swelling. IV flushed thoroughly pre- and post-medication administration. IVP given by RN. --17:33 Suraj Flores R.N. 14:00 04/23/17. BP: 123/80. HR: 78. RR: 19. O2 saturation: 97% on room air. --17:34 Suraj Flores R.N. 14:30 04/23/17. BP: 115/78. HR: 78. RR: 18. O2 saturation: 97% on room air. --17:35 Suraj Flores R.N. 15:00 04/23/17. BP: 116/76. HR: 82. RR: 18. O2 saturation: 98% on room air. --17:36 Suraj Flores R.N. 15:30 04/23/17. BP: 130/106. HR: 81. RR: 19. O2 saturation: 94% on room air. --17:37 Suraj Flores R.N. 16:00 04/23/17. BP: 105/61. HR: 76. RR: 19. O2 saturation: 96% on room air. Ashton-Galarza pain scale: 02/22. --17:37 Suraj Flores R.N. 16:30 04/23/17. BP: 127/68. HR: 82. RR: 20. O2 saturation: 98% on room air. --17:38 Suraj Flores R.N. 17:00 04/23/17. BP: 115/71. HR: 79. RR: 20. O2 saturation: 97% on room air. --17:38 Suraj Flores R.N. DISPOSITION / DISCHARGE Report was given to a nurse via a phone call. Report included patient's care, treatment, medications, reviewed medication reconcilliation, and condition (including any recent changes or anticipated changes). All questions were answered. Report was acknowledged. (AUNDREA Hurtado). --18:07 Suraj Flores R.N. ( NWA here for transport, report given to the crew.). --18:36 Suraj Flores R.N. Departure time: 1845. Condition at departure: unchanged and stable. Transferred to [facility] (Room 1002). Transported via stretcher by EMS with IV. --19:14 Suraj Flores R.N. Locked/Released at 04/24/2017 15:05 by Suraj Flores R.N.
--- NOTE | 2017-04-24 15:05 | ED MAR SUMMARY ---
..... Medication Administration Record [facility] [address] [place] [address] Patient: BRYSON WORLEY V Visit ID: [id number] 66y, M Weight: 58.9 kg Height/Length: 69 in BMI: 19.2 ALLERGIES: No Known Drug Allergy Start 09:55 04/23/2017 Suraj Flores R.N., Stop 16:19 04/23/2017 Suraj Flores R.N. Medication Administered: IV NS (SALINE), Dose: IV Fluids, Bolus: 1000 mL over 1 hour(s), Dispensed: 1000 mL bag, Site: #1 left AC. Medication Ordered: IV NS : initial bolus 1000 mL (1000 mL/hr), then 250 mL/hr for X4 (NOW). Given 12:10 04/23/2017 Suraj Flores R.N. Medication Administered: LEVOFLOXACIN [PO], Dose: 500 mg Tablets PO. Medication Ordered: Levofloxacin PO 500 mg (NOW). Given 15:20 04/23/2017 Suraj Flores R.N. Medication Administered: SOLU-MEDROL [IVP] (METHYLPREDNISOLONE SODIUM SUCC), Dose: 125 mg IVP over 1 minute(s), Site: #1 left AC. Medication Ordered: Solu-MEDROL IV 125 mg (NOW). Given 17:30 04/23/2017 Suraj Flores R.N. Medication Administered: PROTONIX [IVP] (PANTOPRAZOLE SODIUM), Dose: 40 mg IVP over 2 minute(s), Site: #1 left AC. Medication Ordered: Protonix IVP 40mg 40 mg (Mix in NS 10ml over 2min).
--- NOTE | 2017-04-24 15:05 | ED MED RECONCILIATION SUMMARY ---
Patient: BRYSON WORLEY V Medication Reconciliation Report [facility] VisitID: [id number] [address] [place] [address] 66y, M Registration Date/Time: 04/23/2017 Weight: 58.9 kg Height/Length: 69 in. BMI: 19.2 ALLERGIES: No Known Drug Allergy The patient's Home Medications are listed below: THE FOLLOWING MEDICATIONS NEED TO BE RECONCILED: Lovastatin Oral (10 mg), daily Zantac Oral The source(s) of the original Home Medication information: Not obtained. The following Medications were given to the patient in the Emergency Department: IV NS IV Fluids bolus 1000 mL over 1 hour(s), administered: 04/23/2017 9:55:00 AM Levofloxacin [PO] PO 500 mg, administered: 04/23/2017 12:10:00 PM SOLU-MEDROL [IVP] IVP 125 mg, administered: 04/23/2017 3:20:00 PM PROTONIX [IVP] IVP 40 mg, administered: 04/23/2017 5:30:00 PM The following Medications were prescribed to the patient: None.
--- NOTE | 2017-04-24 15:05 | ED MAR SUMMARY ---
..... Medication Administration Record [facility] [address] [place] [address] Patient: BRYSON WORLEY V Visit ID: [id number] 66y, M Weight: 58.9 kg Height/Length: 69 in BMI: 19.2 ALLERGIES: No Known Drug Allergy Start 09:55 04/23/2017 Suraj Flores R.N., Stop 16:19 04/23/2017 Suraj Flores R.N. Medication Administered: IV NS (SALINE), Dose: IV Fluids, Bolus: 1000 mL over 1 hour(s), Dispensed: 1000 mL bag, Site: #1 left AC. Medication Ordered: IV NS : initial bolus 1000 mL (1000 mL/hr), then 250 mL/hr for X4 (NOW). Given 12:10 04/23/2017 Suraj Flores R.N. Medication Administered: LEVOFLOXACIN [PO], Dose: 500 mg Tablets PO. Medication Ordered: Levofloxacin PO 500 mg (NOW). Given 15:20 04/23/2017 Suraj Flores R.N. Medication Administered: SOLU-MEDROL [IVP] (METHYLPREDNISOLONE SODIUM SUCC), Dose: 125 mg IVP over 1 minute(s), Site: #1 left AC. Medication Ordered: Solu-MEDROL IV 125 mg (NOW). Given 17:30 04/23/2017 Suraj Flores R.N. Medication Administered: PROTONIX [IVP] (PANTOPRAZOLE SODIUM), Dose: 40 mg IVP over 2 minute(s), Site: #1 left AC. Medication Ordered: Protonix IVP 40mg 40 mg (Mix in NS 10ml over 2min).
--- NOTE | 2017-04-24 15:05 | ED DISCHARGE INSTRUCTIONS ---
Patient: BRYSON WORLEY V General Instructions [facility] VisitID: [id number] [place] [address] 66y, M Registration Date/Time: 04/23/2017 Mild dehydration Mild chronic anemia. Acute urinary tract infection with cystitis. INSTRUCTIONS Drink plenty of fluids. ADDITIONAL INFORMATION Dehydration (Adult) Dehydration occurs when your body loses too much fluid. This may be the result of vomiting a lot or from diarrhea,sweating a lot, or a high fever. It may also happen if you dont drink enough fluid when youre sick. Misuse of diuretics (water pills) can also be a cause. Symptoms include thirst and feeling dizzy, weak, fatigued, or very drowsy. The diet described below is usually enough to treat most cases. Sometimes you may needmedicine. Home Care Follow these guidelines for home care: Drink at least 12 8-ounce glasses of fluid every day to overcome the dehydration. Fluid may include water; orange juice; lemonade; apple, grape, and cranberry juice; clear fruit drinks; electrolyte replacement and sports drinks; and teas and coffee without caffeine. If you have been diagnosed with a kidney disease, ask your doctor how much and what types of fluids you should drink to prevent dehydration. If you have kidney disease, drinking too much fluid can cause it build up in the your body and be dangerous to your health. If you have fever, muscle aching, or headache from a viral syndrome, you may useacetaminophen or ibuprofen, unless another medicine was prescribed for this.If you have chronic liver or kidney disease or ever had a stomach ulcer or GI bleeding, talk with your doctor before using these medicines. Don't take aspirin if you are younger than 18 and are ill with a fever.Aspirin raises the chance forsevere liver injury. Follow-up care Follow up with your health care provider if you don't get better in the next 24 to 48 hours. When to seek medical care Get prompt medical attention if any of theseoccur: Continued vomiting (cant keep liquids down) Frequent diarrhea (more than 5 times a day); blood (red or black color) or mucus in diarrhea Blood in vomit or stool Swollen abdomen or increasing abdominal pain Weakness, dizziness, or fainting Unusually drowsy or confused Reduced urine output or extreme thirst Fever of 100.4 F (38 C) oral or higher that does not get better with fever medication Anemia [Type Not Specified, Adult] Red blood cells carry oxygen to the tissues of the body. Anemia is a condition where the size or number of red blood cells in the body is reduced. Iron is needed to make red blood cells. The most common cause of anemia is iron deficiency. This may be due to: i) Blood loss (heavy menstrual periods or bleeding from the stomach or intestines); or, ii) Not eating enough iron-containing foods. Other causes of anemia include certain vitamin deficiencies, chronic kidney disease or certain other chronic illnesses. Anemia causes a feeling of being tired and run down. When anemia becomes severe, the skin becomes pale and there is shortness of breath with exertion. Headaches, dizziness, leg cramps with exertion, drowsiness and fatigue are other common symptoms. Home Care: If you are having symptoms of anemia listed above: -- Do not overexert yourself. -- Talk to your doctor before flying on an airplane or traveling to high altitudes. Follow Up with your doctor as advised by our staff. Additional blood testing may be required to determine the exact cause of your anemia. If testing was done on this visit, it may take several days to get all of the results. You may call this facility or follow up with your own doctor to get the results. Get Prompt Medical Attention if any of the following occur: -- Shortness of breath or chest pain -- Worsening of dizziness, fainting -- Vomiting blood or passing red or black-colored stool Bladder Infection,Male (Adult) A bladder infection ("cystitis" or "UTI") usually causes a constant urge to urinate, and a burning when passing urine. Urine may be cloudy, smelly or dark. There may be also be pain in the lower abdomen. Cystitis in males is not common. It may be caused by a partial blockage in the urinary system that keeps the bladder from emptying completely. This is most often related to an enlarged prostate gland. Home Care: Drink lots of fluids (at least 6-8 glasses a day). This will flush the bacteria out of your bladder. Avoid sexual intercourse until your symptoms are gone. Avoid caffeine, alcohol, and spicy foods. They could irritate the bladder. A bladder infection is treated with antibiotics. You may also be given Pyridium (generic - phenazopyridine) to reduce burning with urination. This will cause urine to become a bright orange color, which can stain clothing. Follow Up with your doctor or this facility if ALL symptoms have not cleared within five days. It is important to keep your follow up appointment to discuss with your doctor the need for further tests of the urinary tract. Get Prompt Medical Attention if any of the following occur: Fever of 100.4F (38C) or higher, or as directed by your healthcare provider No improvement by the third day of treatment Increasing back or abdominal pain Repeated vomiting; unable to keep medicine down Weakness, dizziness or fainting You have been given the following additional information: Dehydration (Adult) Anemia, Type Not Specified (Adult) Bladder Infection, Male (Adult) (Electronically signed by Cole Patino DO 04/23/2017 21:25)
--- NOTE | 2017-04-24 15:05 | ED MED RECONCILIATION SUMMARY ---
Patient: BRYSON WORLEY V Medication Reconciliation Report [facility] VisitID: [id number] [address] [place] [address] 66y, M Registration Date/Time: 04/23/2017 Weight: 58.9 kg Height/Length: 69 in. BMI: 19.2 ALLERGIES: No Known Drug Allergy The patient's Home Medications are listed below: THE FOLLOWING MEDICATIONS NEED TO BE RECONCILED: Lovastatin Oral (10 mg), daily Zantac Oral The source(s) of the original Home Medication information: Not obtained. The following Medications were given to the patient in the Emergency Department: IV NS IV Fluids bolus 1000 mL over 1 hour(s), administered: 04/23/2017 9:55:00 AM Levofloxacin [PO] PO 500 mg, administered: 04/23/2017 12:10:00 PM SOLU-MEDROL [IVP] IVP 125 mg, administered: 04/23/2017 3:20:00 PM PROTONIX [IVP] IVP 40 mg, administered: 04/23/2017 5:30:00 PM The following Medications were prescribed to the patient: None.
== END 2017-04-23 18:45 | disposition short-term general hospital (02) ==
LOC: ED SRH 09:28
DX: R53.1 Weakness (principal); E78.5 Hyperlipidemia, unspecified; N30.00 Acute cystitis without hematuria; D63.8 Anemia in other chronic diseases classified elsewhere
CPT/HCPCS: 90004; 90100; 90148; 90469; 90616; 91320; 92235; 92530; 92610; 92720; 92760; 92761; 92762; 92763; 92764; 92765; 92766; 92767; 93140; 95059